=== PATIENT | male | born 1975 | race Caucasian/White ===

== ENCOUNTER 2023-02-24 11:09 | Observation (INO) ==
[2023-02-24 11:50] LABS: BILIRUBIN,URINE NEGATIVE (NEGATIVE); BLOOD/HEMOGLOBIN,URINE 4+ (NEGATIVE); GLUCOSE, URINE NEGATIVE (NEGATIVE); KETONES,URINE NEGATIVE (NEGATIVE); LEUKOCYTE ESTERASE ,URINE NEGATIVE (NEGATIVE); NITRITES,URINE NEGATIVE (NEGATIVE); PROTEIN,URINE 2+ (NEGATIVE); UROBILINOGEN,URINE NORMAL (NORMAL)
[2023-02-24 11:52] LABS: APPEARANCE,URINE CLEAR (CLEAR); COLOR,URINE YELLOW (YELLOW)
[2023-02-24 12:01] LABS: BACTERIA,URINE 1+ /HPF (NEGATIVE); SQUAMOUS EPITHELIAL CELL,UR RARE /HPF (NEGATIVE)
--- NOTE | 2023-02-24 12:18 | DR.ABDMALE ---
HPI Time seen Time Seen by Provider: 02/24/23 11:50 PCP Primary Care Physician: MAYA Complaint Chief Complaint Doctors Comments: Patient presents with abdominal pain in his LUQ and LLQ that has been intermitted x 2 days. Patient has not been able to eat since yesterday because of the pain.Patient has an dull and stabbing pain that is nonradiating. Patient presents because the pain is worse today.Patient had black stool.Patient denies: fever,n,v,back pain,hematemesis,dizziness. Chief Complaint:: PT STATES HE THINKS HE IS HAVING A DIVERTICULITIS FLARE UP. STATES HE HAS HAD THIS IN THE PAST AND IT FEELS LIKE THAT NOW. COVID-19 Coronavirus risk:travel/contact w/high risk person: No Has patient experienced Coronavirus symptoms: No Mode of arrival Mode of Arrival: Ambulatory Timing Onset of Chief Complaint: 02/23/23 PMH PMH Past Medical History: Yes Past Medical History: Hypertension and Hypothyroidism Past Surgical History: Yes Surgical History: Tonsillectomy and Other Family History History of Family Medical Conditions: Yes Family Medical History: Diabetes Mellitus, Heart Failure and Hypertension Social History Have you used tobacco products in the last 12 months: No Type of Tobacco Use: None Does any household member use tobacco: No Alcohol Use: None Do you use any recreational Drugs:: No Lives With: Spouse Lives Where: Home Travel Risk Coronavirus risk:travel/contact w/high risk person: No Has patient experienced Coronavirus symptoms: No Infectious screening In the last 2 months have you had wt loss of >10#?: NO Have you had fever, night sweats or hemotysis?: No Have you traveled outside the country in the last 6 months?: No Isolation: Standard ROS Review of Systems Constitutional: Malaise; negative Fever Eyes: No Symptoms Reported ENTM: No Symptoms Reported Respiratoy: No Symptoms Reported Cardiovascular: No Symptoms Reported Gastrointestinal/Abdominal: Abdominal Pain (LUQ/LLQ/RLQ) and Food Intolerance Genitourinary: No Symptoms Reported Neurological: No Symptoms Reported Musculoskeletal: No Symptoms Reported Integumentary: No Symptoms Reported Hematologic/Lymphatic: No Symptoms Reported Endocrine: No Symptoms Reported Psychiatric: No Symptoms Reported All Other Systems: Reviewed and Negative PE Vital Signs Vital Signs: Temp Pulse Resp BP Pulse Ox O2 Del Method 02/24/23 13:49 20 02/24/23 12:35 20 02/24/23 11:17 97.6 F 78 20 135/84 98 Room Air General Limitations: No Limitations General Appearance: Alert and In No Apparent Distress Head Head Exam: Normal Inspection Eyes Eye exam: Normal Appearance ENT ENT Exam: Normal Exam Neck Neck Exam: Normal Inspection Chest Chest Inspection: Normal Inspection Respiratory Respiratory Exam: Normal Lung Sounds Bilat Respiratory Exam: Bilateral: Clear to Auscultation Cardiovascular Cardiovascular Exam: Regular Rate and Normal Rhythm Abdominal Exam Abdominal Exam: Tenderness (BLQ and LUQ) and Hypoactive Bowel Sounds; negative Guarding or Rebound Abdominal Tenderness: RLQ, LUQ, LLQ and Severe Rectal Rectal Exam: Deferred Back Back Exam: Normal Inspection Extremeties Extremities Exam: Normal Inspection Exam: Male: Deferred Neurologic Neurological Exam: Alert and Oriented X3 Psychiatric Psychiatric Exam: Normal Affect and Normal Mood Skin Skin Exam: Warm, Dry, Intact and Normal Color MDM Differential Diagnosis Differential Diagnosis: Appendicitis, Bowel Obstruction, Cholcystitis, Cho lelethiasis, Diverticular disease, Inflammatory BD and Ischemic Bowel Other differential diagnosis: Perforation,electrolyte disorder COURSE Treatment Treatment: Patient's abdomen pelvis CT without contrast revealed diverticulitis and a large biliary stone. Patient has received Dilaudid 1 mg x 2 doses parenterally for pain, Zofran 4 mg parenterally, Zosyn 3.375 mg IV, Flagyl 500 mg IV. Discussed case with Dr. Martin. He is excepted the patient to his service for further treatment. [facility] Labs Reviewed Laboratory Results Reviewed?: Yes 02/24/23 12:54 02/24/23 12:54 Laboratory: WBC 16.4 X10^3/uL (3.6-10.0) H 02/24/23 12:54 RBC 5.03 X10^6/uL (4.7-6.0) 02/24/23 12:54 Hgb 15.1 g/dL (13.5-18.0) 02/24/23 12:54 Hct 44.9 % (42.0-54.0) 02/24/23 12:54 MCV 89.2 fL (80.0-100.0) 02/24/23 12:54 MCH 30.1 pg (27.0-34.0) 02/24/23 12:54 MCHC 33.7 g/dL (33.0-35.0) 02/24/23 12:54 RDW 12.8 % (11.6-16.5) 02/24/23 12:54 Plt Count 225 X10^3/uL (150.0-450.0) 02/24/23 12:54 MPV 8.6 fL (7.4-11.0) 02/24/23 12:54 Neut % (Auto) 74.4 % (42.0-75.0) 02/24/23 12:54 Lymph % (Auto) 12.9 % (21.0-51.0) L 02/24/23 12:54 [place] % (Auto) 10.5 % (0.0-13.0) 02/24/23 12:54 Eos % (Auto) 1.7 % (0.9-2.9) 02/24/23 12:54 Baso % (Auto) 0.5 % (0.2-1.0) 02/24/23 12:54 Neut # (Auto) 12.2 x10^3/uL (2.2-4.8) H 02/24/23 12:54 Lymph # (Auto) 2.1 X10^3/uL (1.3-2.9) 02/24/23 12:54 [place] # (Auto) 1.7 x10^3/uL (0.3-0.8) H 02/24/23 12:54 Eos # (Auto) 0.3 x10^3/uL (0.0-0.2) H 02/24/23 12:54 Baso # (Auto) 0.1 X10^3/uL (0.0-0.1) 02/24/23 12:54 Absolute Nucleated RBC 0.0 /100WBC 02/24/23 12:54 Sodium 141 mmol/L (136-145) 02/24/23 12:54 Corrected Sodium TNP 02/24/23 12:54 Potassium 4.6 mmol/L (3.5-5.1) 02/24/23 12:54 Chloride 104 mmol/L (98-107) 02/24/23 12:54 Carbon Dioxide 29.4 mmol/L (21-32) 02/24/23 12:54 BUN 13 mg/dL (7-18) 02/24/23 12:54 Creatinine 1.00 mg/dL (0.70-1.30) 02/24/23 12:54 Est GFR (MDRD) Af Amer > 60 (>60) 02/24/23 12:54 Est GFR (MDRD) Non-Af > 60 (>60) 02/24/23 12:54 Glucose 74 mg/dL (65-99) 02/24/23 12:54 Lactic Acid 1.1 mmol/L (0.4-2.0) 02/24/23 12:54 Calcium 8.8 mg/dL (8.5-10.1) 02/24/23 12:54 Corrected Calcium TNP 02/24/23 12:54 Total Bilirubin 1.00 mg/dL (0.2-1.0) 02/24/23 12:54 AST 33 Units/L (15-37) 02/24/23 12:54 ALT 32 Units/L (12-78) 02/24/23 12:54 Alkaline Phosphatase 69 Units/L (46-116) 02/24/23 12:54 C-Reactive Protein 146.40 mg/L (0-3.0) H 02/24/23 12:54 Total Protein 7.3 g/dL (6.4-8.2) 02/24/23 12:54 Albumin 3.4 g/dL (3.4-5.0) 02/24/23 12:54 Globulin 3.9 g/dL (2.5-4.5) 02/24/23 12:54 Albumin/Globulin Ratio 0.9 Ratio (1.1-2.1) L 02/24/23 12:54 Amylase 65 Units/L (25-115) 02/24/23 12:54 Lipase 39 Units/L (16-77) 02/24/23 12:54 Specimen Type Clean catch urine 02/24/23 11:40 Urine Color Yellow (YELLOW) 02/24/23 11:40 Urine Appearance Clear (CLEAR) 02/24/23 11:40 Urine pH 6.0 (5.0 - 8.0) 02/24/23 11:40 Ur Specific [place] 1.015 (1.000-1.030) 02/24/23 11:40 Urine Protein 2+ (NEGATIVE) 02/24/23 11:40 Urine Glucose (UA) Negative (NEGATIVE) 02/24/23 11:40 Urine Ketones Negative (NEGATIVE) 02/24/23 11:40 Urine Blood 4+ (NEGATIVE) 02/24/23 11:40 Urine Nitrite Negative (NEGATIVE) 02/24/23 11:40 Urine Bilirubin Negative (NEGATIVE) 02/24/23 11:40 Urine Urobilinogen Normal (NORMAL) 02/24/23 11:40 Ur Leukocyte Esterase Negative (NEGATIVE) 02/24/23 11:40 Urine RBC 10-20 /HPF (0-3) A 02/24/23 11:40 Urine WBC 3-5 /HPF (0-5) 02/24/23 11:40 Ur Squamous Epith Cells Rare /HPF (NEGATIVE) 02/24/23 11:40 Urine Bacteria 1+ /HPF (NEGATIVE) 02/24/23 11:40 Ur Culture Indicated? No/not indicated 02/24/23 11:40 XRAY XRAY Interpreted by: Radiologist X-ray Results: EXAM: ABDOMEN/PELVIS W/O CON HISTORY: ABDOMINAL PAIN; HX: DIVERTICULITIS COMPARISON: None TECHNIQUE: Multiple axial images of the abdomen and pelvis were obtained from the lung bases to the pubic symphysis without the administration of IV contrast. Dose reduction techniques including Automated Exposure Control (AEC) and adjustment of mA and kV were utilized. FINDINGS: The visualized portions of the lung bases are unremarkable. The liver demonstrates steatosis probably due to fatty infiltration. The solid organs are otherwise unremarkable in their noncontrasted appearance.. The gallbladder demonstrates a large calcified stone.. No significant mesenteric lymphadenopathy or stranding can be observed. No free fluid or free air is seen within the abdomen. No bowel wall thickening or bowel dilatation is present. The colon demonstrates left-sided diverticulosis with some stranding in the sigmoid colon wall thickening most compatible with acute diverticulitis. Follow-up after appropriate treatment may be of benefit with colonoscopy given the associated wall thickening. There is no free air or abscess. The appendix is normal.. The urinary bladder is grossly unremarkable. 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 Opioid Opioid Risk Tool Age (Ulises box if 16-45): No History of Preadolescent Sexual Abuse: No Total: 0 Total Score Risk Category: Low Risk Copyright: Sandor SCOTT predicting aberrant behaviors Discharge Plan Diagnosis Discharge Problem: Sigmoid diverticulitis, Cholelithiasis, Intractable abdominal pain Discharge Plan Patient Disposition: ADMITTED INPATIENT Condition: Stable Prescriptions: No Action lisinopril 20 mg tablet 20 mg PO QAM levothyroxine 200 mcg tablet 200 mcg PO QDAY escitalopram oxalate 20 mg tablet 20 mg PO QDAY Health Concerns: Post Hospitalization: new medications and changes needed to prevent readmission or further decline. Pt educated and given instructions on all concerns. Plan of Treatment: Continue with present treatment and follow up plan. Pt is to keep follow up appointment as instructed and take medications as ordered. Orders to Discharge Patient Discharge Orders: Transfer (Routine); Ordered 02/24/23 Ordered By: Janiya Camacho Follow ups/Referrals Follow ups/Referrals: NFD,None [Primary Care Provider] - 3 days Instructions Stand Alone Forms: Post Hospital Follow Up Care
[2023-02-24] MEDS ORDERED: ZOFRAN INJ 4 MG VIAL IM ONE (12:29)
[2023-02-24] MEDS ORDERED: DILAUDID INJ IM ONE ×2 (12:29→13:43)
[2023-02-24] MEDS ORDERED: ZOFRAN INJ 4 MG VIAL ONE (12:30)
[2023-02-24] MEDS ORDERED: DILAUDID INJ ONE ×2 (12:30→13:45)
--- NOTE | 2023-02-24 12:30 | CT ---
EXAM:ABDOMEN/PELVIS W/O CONHISTORY:ABDOMINAL PAIN; HX: DIVERTICULITISCOMPARISON:NoneTECHNIQUE:M ultiple axial images of the abdomen and pelvis were obtained from the lung bases to the pubic symphysis without the administration of IV contrast. Dose reduction techniques including Automated Exposure Control (AEC) and adjustment of mA and kV were utilized.FINDINGS:The visualized portions of the lung bases are unremarkable. The liver demonstrates steatosis probably due to fatty infiltration. The solid organs are otherwise unremarkable in their noncontrasted appearance.. The gallbladder demonstrates a large calcified stone.. No significant mesenteric lymphadenopathy or stranding can be observed. No free fluid or free air is seen within the abdomen. No bowel wall thickening or bowel dilatation is present. The colon demonstrates left-sided diverticulosis with some stranding in the sigmoid colon wall thickening most compatible with acute diverticulitis. Follow-up after appropriate treatment may be of benefit with colonoscopy given the associated wall thickening. There is no free air or abscess. The appendix is normal.. The urinary bladder is grossly unremarkable. 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
[2023-02-24] MEDS ORDERED: FLAGYL IV PREMIX 500 MG BAG 500 MG/100 ML BAG IV ONE (12:59)
[2023-02-24] MEDS: FLAGYL IV PREMIX 500 MG BAG 500 MG/100 ML BAG IV SCH ×3 (13:03→20:53)
[2023-02-24 13:15] LABS: ALANINE AMINOTRANSFERASE 32 Units/L (12-78); ALBUMIN 3.4 g/dL (3.4-5.0); ALKALINE PHOSPHATASE 69 Units/L (46-116); AMYLASE 65 Units/L (25-115); ASPARTATE AMINO TRANSFERASE 33 Units/L (15-37); BLOOD UREA NITROGEN 13 mg/dL (7-18); CALCIUM 8.8 mg/dL (8.5-10.1); CARBON DIOXIDE 29.4 mmol/L (21-32); CHLORIDE 104 mmol/L (98-107); GLUCOSE 74 mg/dL (65-99); LIPASE 39 Units/L (16-77); POTASSIUM 4.6 mmol/L (3.5-5.1); SODIUM 141 mmol/L (136-145); TOTAL PROTEIN 7.3 g/dL (6.4-8.2); eGFR NON BLACK RACES > 60 (>60)
[2023-02-24 13:16] LABS: BASOPHILS # (AUTO) 0.1 X10^3/uL (0.0-0.1); BASOPHILS % (AUTO) 0.5 % (0.2-1.0); EOSINOPHILS # (AUTO) 0.3 x10^3/uL (0.0-0.2); EOSINOPHILS % (AUTO) 1.7 % (0.9-2.9); HEMATOCRIT 44.9 % (42.0-54.0); HEMOGLOBIN 15.1 g/dL (13.5-18.0); LYMPHOCYTES # (AUTO) 2.1 X10^3/uL (1.3-2.9); LYMPHOCYTES % (AUTO) 12.9 % (21.0-51.0); MEAN CORPUSCULAR HEMOGLOBIN 30.1 pg (27.0-34.0); MEAN CORPUSCULAR HGB CONC 33.7 g/dL (33.0-35.0); MEAN CORPUSCULAR VOLUME 89.2 fL (80.0-100.0); MEAN PLATELET VOLUME 8.6 fL (7.4-11.0); MONOCYTES # (AUTO) 1.7 x10^3/uL (0.3-0.8); MONOCYTES % (AUTO) 10.5 % (0.0-13.0); NEUTROPHILS # (AUTO) 12.2 x10^3/uL (2.2-4.8); NEUTROPHILS % (AUTO) 74.4 % (42.0-75.0); PLATELET COUNT 225 X10^3/uL (150.0-450.0); RED BLOOD COUNT 5.03 X10^6/uL (4.7-6.0); RED CELL DISTRIBUTION WIDTH 12.8 % (11.6-16.5); WHITE BLOOD COUNT 16.4 X10^3/uL (3.6-10.0)
[2023-02-24] MEDS ORDERED: DILAUDID INJ IVP ONE (13:48)
[2023-02-24] MEDS ORDERED: ZOSYN VIAL 3.375 GRAMS IV ONE (14:30)
[2023-02-24] MEDS ORDERED: NS 100 ML IV 100 ML ONE (14:31)
[2023-02-24] MEDS: ZOSYN VIAL 2.25 GRAMS 2.25 G in NS 100 ML IV 100 ML IV SCH (14:33)
[2023-02-24] MEDS ORDERED: ZOSYN VIAL 3.375 GRAMS 3.375 G in NS 100 ML IV 100 ML IV ONE (14:34)
[2023-02-24] MEDS ORDERED: LR 1,000 ML IV 1,000 ML IV SCH (15:00)
[2023-02-24] MEDS: DILAUDID INJ IVP PRN ×2 (15:51→20:53)
[2023-02-24 16:08] VITALS: BMI 33.8
[2023-02-24] MEDS ORDERED: D5 1/2 NS 1,000 ML 1,000 ML IV ONE (17:19)
[2023-02-24] MEDS: D5 1/2 NS 1,000 ML 1,000 ML IV SCH (17:20)
[2023-02-24] MEDS ORDERED: CONSULT PHARMACY - POTASSIUM & MAGNESIUM XX SCH (19:00)
[2023-02-24] MEDS ORDERED: TYLENOL 325 MG TAB PO PRN (20:50)
[2023-02-24] MEDS: MAG-OX TAB PO SCH ×2 (20:53→22:28)
[2023-02-24] MEDS: ZOFRAN INJ 4 MG VIAL IVP PRN (20:54)
[2023-02-24] MEDS: ZOSYN VIAL 3.375 GRAMS 3.375 G in NS 100 ML IV 100 ML IV SCH (22:28)
[2023-02-25] MEDS: D5 1/2 NS 1,000 ML 1,000 ML IV SCH ×4 (01:09→17:40)
[2023-02-25] MEDS: DILAUDID INJ IVP PRN ×6 (01:50→21:24)
[2023-02-25] MEDS: FLAGYL IV PREMIX 500 MG BAG 500 MG/100 ML BAG IV SCH ×4 (02:15→21:16)
[2023-02-25] MEDS: ZOSYN VIAL 3.375 GRAMS 3.375 G in NS 100 ML IV 100 ML IV SCH ×3 (05:22→22:45)
[2023-02-25] MEDS: ZOFRAN INJ 4 MG VIAL IVP PRN (05:22)
[2023-02-25] MEDS: SYNTHROID 100 mcg TAB PO SCH (05:44)
--- NOTE | 2023-02-25 06:25 | RAD ---
EXAM:KUBHISTORY:diverticulitis, intractable abdominal pains; UnavailableCOMPARISON:None.FINDINGS:Eval uation of the abdomen demonstrates a normal bowel gas pattern. There is a moderate amount of fecal material throughout the colon. No pathological soft tissue mass or calcification can be observed. The bony structures are grossly intact.IMPRESSION:No evidence for acute abdominal pathology identified.THIS IS AN ELECTRONICALLY VERIFIED FINAL REPORT02/25/2023 6:22 AM - Electronically signed by Garret Kiser MD
[2023-02-25 06:42] LABS: BASOPHILS # (AUTO) 0.1 X10^3/uL (0.0-0.1); BASOPHILS % (AUTO) 0.4 % (0.2-1.0); EOSINOPHILS # (AUTO) 0.2 x10^3/uL (0.0-0.2); EOSINOPHILS % (AUTO) 1.5 % (0.9-2.9); HEMATOCRIT 42.2 % (42.0-54.0); HEMOGLOBIN 14.1 g/dL (13.5-18.0); LYMPHOCYTES # (AUTO) 1.9 X10^3/uL (1.3-2.9); LYMPHOCYTES % (AUTO) 12.5 % (21.0-51.0); MEAN CORPUSCULAR HEMOGLOBIN 29.7 pg (27.0-34.0); MEAN CORPUSCULAR HGB CONC 33.3 g/dL (33.0-35.0); MEAN CORPUSCULAR VOLUME 89.2 fL (80.0-100.0); MEAN PLATELET VOLUME 8.7 fL (7.4-11.0); MONOCYTES # (AUTO) 1.7 x10^3/uL (0.3-0.8); MONOCYTES % (AUTO) 11.2 % (0.0-13.0); NEUTROPHILS # (AUTO) 11.2 x10^3/uL (2.2-4.8); NEUTROPHILS % (AUTO) 74.4 % (42.0-75.0); PLATELET COUNT 217 X10^3/uL (150.0-450.0); RED BLOOD COUNT 4.73 X10^6/uL (4.7-6.0); RED CELL DISTRIBUTION WIDTH 12.5 % (11.6-16.5); WHITE BLOOD COUNT 15.1 X10^3/uL (3.6-10.0)
[2023-02-25 07:23] LABS: ALANINE AMINOTRANSFERASE 26 Units/L (12-78); ALBUMIN 2.8 g/dL (3.4-5.0); ALKALINE PHOSPHATASE 63 Units/L (46-116); ASPARTATE AMINO TRANSFERASE 14 Units/L (15-37); BLOOD UREA NITROGEN 8 mg/dL (7-18); CALCIUM 8.4 mg/dL (8.5-10.1); CARBON DIOXIDE 31.4 mmol/L (21-32); CHLORIDE 105 mmol/L (98-107); COR CA(FOR HYPOALB) 9.4 mg/dL (8.5-10.1); CREATININE 1.06 mg/dL (0.70-1.30); GLUCOSE 92 mg/dL (65-99); MAGNESIUM 1.9 mg/dL (2.0-2.9); POTASSIUM 3.9 mmol/L (3.5-5.1); SODIUM 141 mmol/L (136-145); TOTAL PROTEIN 6.6 g/dL (6.4-8.2); eGFR NON BLACK RACES > 60 (>60)
[2023-02-25] MEDS ORDERED: CONSULT PHARMACY - POTASSIUM & MAGNESIUM XX SCH (08:00)
[2023-02-25] MEDS ORDERED: LEXAPRO ONE (08:10)
[2023-02-25] MEDS ORDERED: ZESTRIL TAB 20 MG ONE (08:11)
[2023-02-25] MEDS: LEXAPRO PO SCH (08:45)
[2023-02-25] MEDS: ZESTRIL TAB 20 MG PO SCH (08:45)
[2023-02-25] MEDS ORDERED: PATIENT'S HOME MEDICATION (Levothyroxine 200 mcg tablet) PO SCH (09:00)
[2023-02-25] MEDS: MAG-OX TAB PO SCH ×2 (09:32→09:44)
[2023-02-25 17:18] LABS: CRYPTOSPORIDIUM PARVUM ANTIGEN NEGATIVE (NEGATIVE); GIARDIA LAMBLIA ANTIGEN NEGATIVE (NEGATIVE)
[2023-02-26] MEDS: ZOFRAN INJ 4 MG VIAL IVP PRN (01:32)
[2023-02-26] MEDS: DILAUDID INJ IVP PRN ×2 (01:32→06:02)
[2023-02-26] MEDS: D5 1/2 NS 1,000 ML 1,000 ML IV SCH ×2 (01:37→10:07)
[2023-02-26] MEDS: FLAGYL IV PREMIX 500 MG BAG 500 MG/100 ML BAG IV SCH ×2 (03:36→10:07)
[2023-02-26 04:55] VITALS: RESP 18; TEMP 98
[2023-02-26] MEDS: ZOSYN VIAL 3.375 GRAMS 3.375 G in NS 100 ML IV 100 ML IV SCH (05:50)
[2023-02-26] MEDS: SYNTHROID 100 mcg TAB PO SCH (05:51)
[2023-02-26 06:27] LABS: BASOPHILS % (AUTO) 0.3 % (0.2-1.0); EOSINOPHILS # (AUTO) 0.4 x10^3/uL (0.0-0.2); EOSINOPHILS % (AUTO) 3.3 % (0.9-2.9); HEMATOCRIT 39.5 % (42.0-54.0); HEMOGLOBIN 13.2 g/dL (13.5-18.0); LYMPHOCYTES # (AUTO) 1.5 X10^3/uL (1.3-2.9); MEAN CORPUSCULAR HEMOGLOBIN 29.7 pg (27.0-34.0); MEAN CORPUSCULAR HGB CONC 33.5 g/dL (33.0-35.0); MEAN CORPUSCULAR VOLUME 88.6 fL (80.0-100.0); MEAN PLATELET VOLUME 8.7 fL (7.4-11.0); MONOCYTES # (AUTO) 1.2 x10^3/uL (0.3-0.8); MONOCYTES % (AUTO) 10.7 % (0.0-13.0); NEUTROPHILS # (AUTO) 8.4 x10^3/uL (2.2-4.8); NEUTROPHILS % (AUTO) 72.7 % (42.0-75.0); PLATELET COUNT 215 X10^3/uL (150.0-450.0); RED BLOOD COUNT 4.46 X10^6/uL (4.7-6.0); RED CELL DISTRIBUTION WIDTH 12.4 % (11.6-16.5); WHITE BLOOD COUNT 11.6 X10^3/uL (3.6-10.0)
[2023-02-26 06:38] LABS: ALANINE AMINOTRANSFERASE 27 Units/L (12-78); ALBUMIN 2.7 g/dL (3.4-5.0); ALKALINE PHOSPHATASE 68 Units/L (46-116); ASPARTATE AMINO TRANSFERASE 15 Units/L (15-37); BLOOD UREA NITROGEN 6 mg/dL (7-18); CALCIUM 8.3 mg/dL (8.5-10.1); CARBON DIOXIDE 32.8 mmol/L (21-32); CHLORIDE 105 mmol/L (98-107); COR CA(FOR HYPOALB) 9.3 mg/dL (8.5-10.1); CREATININE 0.97 mg/dL (0.70-1.30); GLUCOSE 101 mg/dL (65-99); POTASSIUM 3.6 mmol/L (3.5-5.1); SODIUM 141 mmol/L (136-145); TOTAL PROTEIN 6.6 g/dL (6.4-8.2); eGFR NON BLACK RACES > 60 (>60)
[2023-02-26] MEDS ORDERED: LEXAPRO ONE (08:30)
[2023-02-26] MEDS ORDERED: ZESTRIL TAB 20 MG ONE (08:30)
[2023-02-26] MEDS: LEXAPRO PO SCH (10:06)
[2023-02-26] MEDS: ZESTRIL TAB 20 MG PO SCH (10:07)
[2023-02-26 15:38] VITALS: BP 130/67; PULSE 81; O2SAT 95
== END 2023-02-26 09:30 | disposition home or self-care (01) ==
LOC: ER 11:09 → INTOOBSV 14:42 → MED/SURG 14:42
PROVIDERS: ADMIT Surgery; ATTEND Surgery
DX: R79.82 Elevated C-reactive protein (CRP); K80.20 Calculus of gallbladder without cholecystitis without obstruction; K57.32 Diverticulitis of large intestine without perforation or abscess without bleeding; E83.42 Hypomagnesemia; K92.1 Melena; R10.84 Generalized abdominal pain; E03.8 Other specified hypothyroidism; I10 Essential (primary) hypertension

== ENCOUNTER 2023-05-13 11:39 | Observation (INO) ==
--- NOTE | 2023-05-13 11:46 | EKG ---
Test Reason : chest pain Blood Pressure : */* mmHG Vent. Rate : 63 BPM Atrial Rate : 63 BPM P-R Int : 166 ms QRS Dur : 106 ms QT Int : 412 ms P-R-T Axes : 33 54 11 degrees QTc Int : 421 ms Normal sinus rhythm Incomplete right bundle branch block Borderline ECG No previous ECGs available Confirmed by Jeff Edgar MD ([id number]) on 05/14/2023 7:38:23 AM Referred By: Confirmed By: Jeff Edgar MD
--- NOTE | 2023-05-13 12:11 | DR.CP ---
HPI Time Seen Time Seen by Provider: 05/13/23 12:09 PCP Primary Care Physician: DR. SOLITARIO Complaint Chief Complaint:: Pt states that he has been having chest pain since yesterday that thas gotten worse today. also states that pt has galstones. Self Treatment fo Chief Complaint: N/A COVID-19 Coronavirus risk:travel/contact w/high risk person: No Has patient experienced Coronavirus symptoms: No Reviewed Nurses Notes Review: Yes Source History Provided: Patient Mode of Arrival Mode of Arrival: Ambulatory Timing Onset of Chief Complaint: 05/12/23 PMH PMH Past Medical History: Yes Past Medical History: Hypertension and Hypothyroidism Past Medical History Comment: DIVERTICULITIS, GALLSTONES Past Surgical History: Yes Surgical History: Tonsillectomy Past Surgical History Comment: SCOPES ON RIGHT KNEE, RIGHT THUMB, HERNIA REPAIR, ADENOIDS Family History History of Family Medical Conditions: Yes Family Medical History: Cancer Social History Does patient currently use any type of tobacco product: No Have you used tobacco products in the last 12 months: No Type of Tobacco Use: None Does any household member use tobacco: No Alcohol Use: None Do you use any recreational Drugs:: No Lives With: Spouse Lives Where: Home Travel Risk Coronavirus risk:travel/contact w/high risk person: No Has patient experienced Coronavirus symptoms: No Infectious screening Have you traveled outside the country in the last 6 months?: No Isolation: Standard PE Vitals Vitals: Vital Signs Temperature 98.1 F Pulse Rate 58 Pulse Rate 53 Pulse Rate 56 Pulse Rate 53 Pulse Rate 64 Pulse Rate 59 Pulse Rate 59 Pulse Rate 52 Pulse Rate 59 Pulse Rate 55 Pulse Rate 53 Pulse Rate 63 Pulse Rate 53 Pulse Rate 57 Pulse Rate 57 Pulse Rate 60 Pulse Rate 65 Pulse Rate 59 Pulse Rate 67 Respiratory Rate 13 Respiratory Rate 21 Respiratory Rate 20 Respiratory Rate 19 Respiratory Rate 11 Respiratory Rate 22 Respiratory Rate 18 Respiratory Rate 12 Respiratory Rate 24 Respiratory Rate 30 Respiratory Rate 20 Respiratory Rate 22 Respiratory Rate 11 Respiratory Rate 13 Respiratory Rate 27 Respiratory Rate 17 Respiratory Rate 13 Respiratory Rate 18 Blood Pressure 118/66 Blood Pressure 156/76 O2 Sat by Pulse Oximetry 99 O2 Sat by Pulse Oximetry 98 O2 Sat by Pulse Oximetry 99 O2 Sat by Pulse Oximetry 99 O2 Sat by Pulse Oximetry 99 O2 Sat by Pulse Oximetry 98 O2 Sat by Pulse Oximetry 99 O2 Sat by Pulse Oximetry 97 O2 Sat by Pulse Oximetry 99 O2 Sat by Pulse Oximetry 98 O2 Sat by Pulse Oximetry 98 O2 Sat by Pulse Oximetry 96 O2 Sat by Pulse Oximetry 96 O2 Sat by Pulse Oximetry 97 O2 Sat by Pulse Oximetry 96 O2 Sat by Pulse Oximetry 95 O2 Sat by Pulse Oximetry 97 O2 Sat by Pulse Oximetry 97 O2 Sat by Pulse Oximetry 99 [facility] Labs Reviewed 05/13/23 12:45 05/13/23 12:45 Laboratory: WBC 9.0 X10^3/uL (3.6-10.0) 05/13/23 12:45 RBC 4.50 X10^6/uL (4.7-6.0) L 05/13/23 12:45 Hgb 13.6 g/dL (13.5-18.0) 05/13/23 12:45 Hct 40.1 % (42.0-54.0) L 05/13/23 12:45 MCV 89.2 fL (80.0-100.0) 05/13/23 12:45 MCH 30.1 pg (27.0-34.0) 05/13/23 12:45 MCHC 33.8 g/dL (33.0-35.0) 05/13/23 12:45 RDW 13.9 % (11.6-16.5) 05/13/23 12:45 Plt Count 264 X10^3/uL (150.0-450.0) 05/13/23 12:45 MPV 8.3 fL (7.4-11.0) 05/13/23 12:45 Neut % (Auto) 62.9 % (42.0-75.0) 05/13/23 12:45 Lymph % (Auto) 26.1 % (21.0-51.0) 05/13/23 12:45 [place] % (Auto) 6.8 % (0.0-13.0) 05/13/23 12:45 Eos % (Auto) 3.4 % (0.9-2.9) H 05/13/23 12:45 Baso % (Auto) 0.8 % (0.2-1.0) 05/13/23 12:45 Neut # (Auto) 5.7 x10^3/uL (2.2-4.8) H 05/13/23 12:45 Lymph # (Auto) 2.4 X10^3/uL (1.3-2.9) 05/13/23 12:45 [place] # (Auto) 0.6 x10^3/uL (0.3-0.8) 05/13/23 12:45 Eos # (Auto) 0.3 x10^3/uL (0.0-0.2) H 05/13/23 12:45 Baso # (Auto) 0.1 X10^3/uL (0.0-0.1) 05/13/23 12:45 Absolute Nucleated RBC 0.0 /100WBC 05/13/23 12:45 D-Dimer 0.28 ug/ml (0.0-0.57) 05/13/23 12:45 Sodium 144 mmol/L (136-145) 05/13/23 12:45 Corrected Sodium TNP 05/13/23 12:45 Potassium 4.2 mmol/L (3.5-5.1) 05/13/23 12:45 Chloride 109 mmol/L (98-107) H 05/13/23 12:45 Carbon Dioxide 29.5 mmol/L (21-32) 05/13/23 12:45 BUN 20 mg/dL (7-18) H 05/13/23 12:45 Creatinine 1.03 mg/dL (0.70-1.30) 05/13/23 12:45 Est GFR (MDRD) Af Amer > 60 (>60) 05/13/23 12:45 Est GFR (MDRD) Non-Af > 60 (>60) 05/13/23 12:45 Glucose 88 mg/dL (65-99) 05/13/23 12:45 Calcium 9.0 mg/dL (8.5-10.1) 05/13/23 12:45 Corrected Calcium TNP 05/13/23 12:45 Total Bilirubin 0.20 mg/dL (0.2-1.0) 05/13/23 12:45 AST 22 Units/L (15-37) 05/13/23 12:45 ALT 31 Units/L (12-78) 05/13/23 12:45 Alkaline Phosphatase 63 Units/L (46-116) 05/13/23 12:45 Creatine Kinase 253 Units/L (39-308) 05/13/23 14:18 Troponin I High Sens 7.0 ng/L (4.0-60.0) 05/13/23 14:18 B-Natriuretic Peptide 57.9 pg/mL (0-79) 05/13/23 12:45 Total Protein 6.9 g/dL (6.4-8.2) 05/13/23 12:45 Albumin 3.5 g/dL (3.4-5.0) 05/13/23 12:45 Globulin 3.4 g/dL (2.5-4.5) 05/13/23 12:45 Albumin/Globulin Ratio 1.0 Ratio (1.1-2.1) L 05/13/23 12:45 Amylase 74 Units/L (25-115) 05/13/23 12:45 Amylase Cancelled 05/13/23 12:45 Lipase 50 Units/L (16-77) 05/13/23 12:45 Lipase Cancelled 05/13/23 12:45 Opioid Opioid Risk Tool Age (Ulises box if 16-45): No History of Preadolescent Sexual Abuse: No Total: 0 Total Score Risk Category: Low Risk Copyright: Sandor SCOTT predicting aberrant behaviors Discharge Plan Discharge Plan Patient Disposition: HOME, SELF-CARE Condition: Stable Prescriptions: No Action lisinopril 20 mg tablet 20 mg PO QAM levothyroxine 200 mcg tablet 200 mcg PO QDAY escitalopram oxalate 20 mg tablet 20 mg PO QDAY amlodipine [Norvasc] 5 mg Tablet 5 mg PO DAILY hydrocodone-acetaminophen 5-325 mg Tablet 1 tab PO Q4H MDD 5 PRNQty: 30 0RF ciprofloxacin HCl [Cipro] 500 mg Tablet 500 mg PO Q12H Qty: 14 0RF metronidazole 500 mg Tablet 500 mg PO Q8H Qty: 21 0RF Health Concerns: Post Hospitalization: new medications and changes needed to prevent readmission or further decline. Pt educated and given instructions on all concerns. Plan of Treatment: Continue with present treatment and follow up plan. Pt is to keep follow up appointment as instructed and take medications as ordered. Orders to Discharge Patient Discharge Orders: Transfer (Routine); Ordered 05/13/23 Ordered By: IRINEO SCHULZ Follow ups/Referrals Follow ups/Referrals: NFD,None [Primary Care Provider] - 3 days Instructions Stand Alone Forms: Post Hospital Follow Up Care
[2023-05-13 12:58] LABS: BASOPHILS # (AUTO) 0.1 X10^3/uL (0.0-0.1); BASOPHILS % (AUTO) 0.8 % (0.2-1.0); EOSINOPHILS # (AUTO) 0.3 x10^3/uL (0.0-0.2); EOSINOPHILS % (AUTO) 3.4 % (0.9-2.9); HEMATOCRIT 40.1 % (42.0-54.0); HEMOGLOBIN 13.6 g/dL (13.5-18.0); LYMPHOCYTES # (AUTO) 2.4 X10^3/uL (1.3-2.9); LYMPHOCYTES % (AUTO) 26.1 % (21.0-51.0); MEAN CORPUSCULAR HEMOGLOBIN 30.1 pg (27.0-34.0); MEAN CORPUSCULAR HGB CONC 33.8 g/dL (33.0-35.0); MEAN CORPUSCULAR VOLUME 89.2 fL (80.0-100.0); MEAN PLATELET VOLUME 8.3 fL (7.4-11.0); MONOCYTES # (AUTO) 0.6 x10^3/uL (0.3-0.8); MONOCYTES % (AUTO) 6.8 % (0.0-13.0); NEUTROPHILS # (AUTO) 5.7 x10^3/uL (2.2-4.8); NEUTROPHILS % (AUTO) 62.9 % (42.0-75.0); PLATELET COUNT 264 X10^3/uL (150.0-450.0); RED CELL DISTRIBUTION WIDTH 13.9 % (11.6-16.5)
[2023-05-13 13:15] LABS: ALANINE AMINOTRANSFERASE 31 Units/L (12-78); ALBUMIN 3.5 g/dL (3.4-5.0); ALKALINE PHOSPHATASE 63 Units/L (46-116); AMYLASE 74 Units/L (25-115); ASPARTATE AMINO TRANSFERASE 22 Units/L (15-37); BLOOD UREA NITROGEN 20 mg/dL (7-18); CARBON DIOXIDE 29.5 mmol/L (21-32); CHLORIDE 109 mmol/L (98-107); CREATINE KINASE 267 Units/L (39-308); CREATININE 1.03 mg/dL (0.70-1.30); GLUCOSE 88 mg/dL (65-99); LIPASE 50 Units/L (16-77); POTASSIUM 4.2 mmol/L (3.5-5.1); SODIUM 144 mmol/L (136-145); TOTAL PROTEIN 6.9 g/dL (6.4-8.2); eGFR NON BLACK RACES > 60 (>60)
--- NOTE | 2023-05-13 13:34 | RAD ---
EXAM:CHEST, 1 VIEWHISTORY:pain;COMPARISON:No relevant prior studies were available for comparison at the time of interpretation.TECHNIQUE:CHEST, 1 VIEWFINDINGS:Chest:Lines and tubes: Cardiac leads overlie the chest.Mediastinum: Cardiac and mediastinal shadow is within normal limits for size and contour.Pulmonary vessels: No pulmonary vascular congestion.Lung love: No suspicious airspace opacity.Pleura: No effusion. No pneumothorax.Bones and soft tissues: No acute osseous or soft tissue abnormality.IMPRESSION:1. No acute cardiopulmonary abnormalityTHIS IS AN ELECTRONICALLY VERIFIED FINAL REPORT05/13/2023 1:31 PM - Electronically signed by Jefe Vaca MD
[2023-05-13] MEDS ORDERED: NS 100 ML IV 100 ML ONE (16:17)
[2023-05-13] MEDS: ZOSYN VIAL 3.375 GRAMS 3.375 G in NS 100 ML IV 100 ML IV ONE (16:23)
[2023-05-13] MEDS: ZOSYN VIAL 3.375 GRAMS 3.375 G in NS 100 ML IV 100 ML IV SCH (16:49)
[2023-05-13] MEDS ORDERED: DILAUDID INJ ONE (16:50)
[2023-05-13] MEDS ORDERED: PROTONIX INJ 40 MG VIAL ONE (16:50)
[2023-05-13] MEDS: ZOFRAN INJ 4 MG VIAL ONE (16:51)
[2023-05-13] MEDS ORDERED: D5 1/2 NS 1,000 ML 1,000 ML IV ONE (16:51)
[2023-05-13] MEDS: DILAUDID INJ IVP PRN (16:58)
[2023-05-13] MEDS: PROTONIX INJ 40 MG VIAL IVP SCH (16:59)
[2023-05-13] MEDS: ZOFRAN INJ 4 MG VIAL IVP PRN (16:59)
[2023-05-13] MEDS: ZOSYN VIAL 3.375 GRAMS IV ONE (17:00)
[2023-05-13 18:11] VITALS: BMI 31.6
[2023-05-13] MEDS: D5 1/2 NS 1,000 ML 1,000 ML IV SCH (18:15)
[2023-05-13 22:33] LABS: BILIRUBIN,URINE NEGATIVE (NEGATIVE); BLOOD/HEMOGLOBIN,URINE 2+ (NEGATIVE); GLUCOSE, URINE NEGATIVE (NEGATIVE); KETONES,URINE NEGATIVE (NEGATIVE); LEUKOCYTE ESTERASE ,URINE NEGATIVE (NEGATIVE); NITRITES,URINE NEGATIVE (NEGATIVE); PROTEIN,URINE NEGATIVE (NEGATIVE); UROBILINOGEN,URINE NORMAL (NORMAL)
[2023-05-13 22:42] LABS: APPEARANCE,URINE CLEAR (CLEAR); BACTERIA,URINE NEGATIVE /HPF (NEGATIVE); COLOR,URINE PALE YELLOW (YELLOW); HYALINE CASTS, URINE RARE /LPF (NEGATIVE); SQUAMOUS EPITHELIAL CELL,UR RARE /HPF (NEGATIVE)
[2023-05-14] MEDS: NS 250 ML IV 25 ML IV PRN (05:42)
[2023-05-14 05:58] LABS: BASOPHILS # (AUTO) 0.1 X10^3/uL (0.0-0.1); BASOPHILS % (AUTO) 0.6 % (0.2-1.0); EOSINOPHILS # (AUTO) 0.5 x10^3/uL (0.0-0.2); HEMATOCRIT 42.3 % (42.0-54.0); HEMOGLOBIN 14.2 g/dL (13.5-18.0); LYMPHOCYTES # (AUTO) 2.2 X10^3/uL (1.3-2.9); LYMPHOCYTES % (AUTO) 21.5 % (21.0-51.0); MEAN CORPUSCULAR HEMOGLOBIN 30.4 pg (27.0-34.0); MEAN CORPUSCULAR HGB CONC 33.6 g/dL (33.0-35.0); MEAN CORPUSCULAR VOLUME 90.5 fL (80.0-100.0); MEAN PLATELET VOLUME 8.7 fL (7.4-11.0); MONOCYTES # (AUTO) 0.9 x10^3/uL (0.3-0.8); NEUTROPHILS # (AUTO) 6.4 x10^3/uL (2.2-4.8); NEUTROPHILS % (AUTO) 63.9 % (42.0-75.0); PLATELET COUNT 235 X10^3/uL (150.0-450.0); RED BLOOD COUNT 4.68 X10^6/uL (4.7-6.0); RED CELL DISTRIBUTION WIDTH 13.8 % (11.6-16.5); WHITE BLOOD COUNT 10.1 X10^3/uL (3.6-10.0)
[2023-05-14 06:00] LABS: BLOOD UREA NITROGEN 14 mg/dL (7-18); CALCIUM 8.6 mg/dL (8.5-10.1); CARBON DIOXIDE 31.4 mmol/L (21-32); CHLORIDE 107 mmol/L (98-107); CREATININE 1.06 mg/dL (0.70-1.30); GLUCOSE 90 mg/dL (65-99); POTASSIUM 4.1 mmol/L (3.5-5.1); SODIUM 144 mmol/L (136-145); eGFR NON BLACK RACES > 60 (>60)
[2023-05-14 06:36] LABS: ALANINE AMINOTRANSFERASE 29 Units/L (12-78); ALBUMIN 3.4 g/dL (3.4-5.0); ALKALINE PHOSPHATASE 63 Units/L (46-116); ASPARTATE AMINO TRANSFERASE 19 Units/L (15-37); TOTAL PROTEIN 6.9 g/dL (6.4-8.2)
[2023-05-14 06:38] LABS: AMYLASE 77 Units/L (25-115); LIPASE 41 Units/L (16-77)
[2023-05-14] MEDS: DIPRIVAN VIAL 20 ML ONE (07:30)
[2023-05-14] MEDS: LR 1,000 ML IV 1,000 ML IV ONE (07:30)
[2023-05-14] MEDS: PEPCID 20 MG VIAL ONE (07:30)
[2023-05-14] MEDS: VERSED ONE (07:30)
[2023-05-14] MEDS: BRIDION ONE (07:30)
[2023-05-14] MEDS ORDERED: SUPRANE ONE (07:30)
[2023-05-14] MEDS: FENTANYL VIAL INJ 250 mcg ONE (07:30)
[2023-05-14] MEDS: DECADRON INJ ONE (07:30)
[2023-05-14] MEDS: REGLAN INJ 10 MG VIAL ONE (07:30)
[2023-05-14] MEDS: QUELICIN (OR ANECTINE) ONE (07:30)
[2023-05-14] MEDS: ZOFRAN INJ 4 MG VIAL ONE (07:30)
[2023-05-14] MEDS: ZEMURON 100 MG VIAL ONE (07:30)
[2023-05-14] MEDS: OFIRMEV IV 1000 MG VIAL 1,000 MG/100 ML VIAL IV ONE (07:48)
[2023-05-14] MEDS: BACTROBAN TOPICAL OINT ONE (07:48)
[2023-05-14] MEDS: EPHEDRINE SULFATE INJ ONE (07:56)
[2023-05-14] MEDS ORDERED: BENADRYL INJ 50 MG VIAL IVP PRN (08:57)
[2023-05-14] MEDS ORDERED: REGLAN INJ 10 MG VIAL IVP PRN (08:57)
[2023-05-14] MEDS ORDERED: BARHEMSYS INJ IVP PRN (08:57)
[2023-05-14] MEDS ORDERED: ZOFRAN INJ 4 MG VIAL IVP PRN (08:57)
[2023-05-14] MEDS: DILAUDID INJ IVP PRN (09:03)
[2023-05-14] MEDS ORDERED: DILAUDID INJ ONE (09:03)
[2023-05-14] MEDS: NORCO 5/325 MG TAB PO PRN (11:02)
[2023-05-14 14:30] VITALS: BP 148/68; PULSE 61; RESP 18; O2SAT 96
[2023-05-14 14:34] VITALS: TEMP 97
== END 2023-05-14 13:50 | disposition home or self-care (01) ==
LOC: ER 11:39 → MED/SURG 11:39
PROVIDERS: ADMIT Surgery; ATTEND Surgery